=== PATIENT | male | born 1990 | race Caucasian/White ===

== ENCOUNTER 2020-12-15 06:01 | Emergency (ER) | payer OTHER ==
[2020-12-15 06:47] LABS: ALBUMIN 4.6 g/dL (3.4-5.0); BASOPHIL 0.3 % (0-2); BILIRUBIN - TOTAL 1.1 mg/dL (0.2-1.0); BUN/CREAT RATIO (CALC) 26.3 RATIO; CREATININE 0.95 mg/dL (0.67-1.17); EOSINOPHIL 0.2 % (0-5); GLOBULIN (CALCULATION) 3.2 g/dL; HCT 46.4 % (42.0-52.0); HGB 16.3 g/dl (13.2-18.0); LYMPHOCYTE 3.7 % (15-48); MCH 29.2 pg (25.0-31.0); MCHC 35.1 g/dL (32.0-36.0); MCV 83.2 fL (78.0-100.0); MONOCYTE 5.7 % (0-12); MPV 10.1 fL (6.0-9.5); NEUTROPHIL 89.6 % (41-80); NRBC 0; PLT 198 K/uL (150-400); POTASSIUM 4.2 mmol/L (3.5-5.1); RBC 5.58 M/uL (4.70-6.00); RDW 11.2 % (11.5-14.0); TOTAL PROTEIN 7.8 g/dL (6.4-8.2); WBC 14.6 K/uL (4.0-10.5)
[2020-12-15 08:02] LABS: BILIRUBIN NEGATIVE (NEGATIVE); BLOOD NEGATIVE Ery/uL (NEGATIVE); CLARITY CLEAR (CLEAR); COLOR YELLOW (YELLOW); GLUCOSE (U) NORMAL (NORMAL); LEUKOCYTES NEGATIVE Leu/uL (NEGATIVE); NITRITE NEGATIVE (NEGATIVE); PROTEIN TRACE (LOW) mg/dL (NEGATIVE); UROBILINOGEN 0.2 mg/dL (0.2-1.0); pH 8.5 (5.0-9.0)
[2020-12-15 08:10] LABS: BACTERIA TRACE; MUCOUS TRACE
[2020-12-15] MEDS ORDERED: ONDANSETRON ODT4 MG PO (08:55)
== END 2020-12-15 09:18 | disposition home or self-care (01) ==
LOC: FER 06:01
PROVIDERS: Emergency Medicine
DX: R10.13 Epigastric pain (principal); R11.2 Nausea with vomiting, unspecified; R19.7 Diarrhea, unspecified
CPT/HCPCS: 36415; 80053; 81001; 82150; 83690; 85025; J1885; J2405; J7120; Q9967